=== PATIENT | male | born 1945 | race Caucasian/White ===

== ENCOUNTER 2018-05-18 11:15 | Observation (INO) | payer MEDICARE, OTHER ==
[~2018-05-18] VITALS: Ht 167.6 cm; Wt 68.2 kg
[~2018-05-18 11:15] MED LIST: HALO5TAB16; OMEP20CA16
[2018-05-18] MEDS ORDERED: SOD CHLORIDE 0.9% 1,000 ML IV STA (11:43)
--- NOTE | 2018-05-18 12:14 | ERD ---
ER Documentation Chief Complaint Chief Complaint MECHANICAL FALL WITH LAC TO BACK OF HEAD. BASELINE MENTATION HPI 73-year-old man brought in by family for complaints of losing his balance and then falling backward followed by loss of consciousness. Patient was not walking and did not trip over anything so the cause of his "losing balance" is unknown. Patient does have a history of difficulty ambulating and usually either uses a wheelchair or walker. He said no recent fevers or chills, no vomiting, no complaints of chest pain or shortness of breath. Patient has a lifelong history of cognitive dysfunction and is unable to care for himself. HPI supplemented by speaking to family members who were at the bedside. Patient's tetanus immunization is up-to-date ROS All systems reviewed and are negative except as per history of present illness. Medications Home Meds Reported Medications Omeprazole* (Omeprazole*) 20 Mg Capsule.dr, 20 MG PO DAILY, #30 CAP 05/18/18 Methimazole* (Methimazole*) 5 Mg Tablet, 5 MG PO DAILY, TAB 05/18/18 Amitriptyline Hcl* (Amitriptyline Hcl*) 25 Mg Tablet, 25 MG PO QHS, #30 TAB 05/18/18 Topiramate* (Topiramate*) 50 Mg Tablet, 50 MG PO BID, TAB 05/18/18 Hydrochlorothiazide* (Hydrochlorothiazide*) 25 Mg Tab, 25 MG PO DAILY, #30 TAB 05/18/18 Lisinopril* (Lisinopril*) 10 Mg Tablet, 10 MG PO DAILY, #30 TAB 05/18/18 Discontinued Reported Medications Omeprazole* (Omeprazole*) 20 Mg Capsule. 01/12/10 Haloperidol (Haloperidol) 5 Mg Tablet 01/12/10 Allergies Allergies: Coded Allergies: No Known Allergies (Verified Allergy, Unknown, 05/18/18) PMhx/Soc Hypertension, mental retardation Anesthesia Reaction: No Hx Neurological Disorder: Yes (HX OF MENTAL RETARDATION PER EMS) Hx Respiratory Disorders: No Hx Cardiac Disorders: Yes (htn) Hx Miscellaneous Medical Probl: No Smoking Status: Never smoker FmHx Family History: No diabetes Physical Exam Vitals Vital Signs Date Temp Pulse Resp B/P (MAP) Pulse Ox O2 O2 Flow FiO2 Time Delivery Rate 05/18/18 80 17 118/78 95 Room Air 13:36 (91) 05/18/18 97.6 89 16 117/77 97 11:18 (90) Physical Exam Const: No acute distress, appears calm, afebrile HEENT: Soft tissue contusion and superficial hematoma to the posterior scalp Resp: Clear to auscultation bilaterally Cardio: Regular rate and rhythm, no murmurs Abd: Soft, non tender, non distended. Skin: No petechiae or rashes Back: No midline or flank tenderness Ext: No cyanosis, or edema Neur: Nonverbal, moving all extremities, pupils equal round reactive to light, no focal deficits or facial asymmetry Psych: Normal Mood and Affect Result Diagram: 05/18/18 1330 05/18/18 1330 Results 24 hrs Laboratory Tests Test 05/18/18 13:30 White Blood Count 11.3 10^3/ul Red Blood Count 3.94 10^6/ul Hemoglobin 13.0 g/dl Hematocrit 38.3 % Mean Corpuscular Volume 97.2 fl Mean Corpuscular Hemoglobin 33.0 pg Mean Corpuscular Hemoglobin Concent 33.9 g/dl Red Cell Distribution Width 12.4 % Platelet Count 247 10^3/UL Mean Platelet Volume 9.8 fl Immature Granulocytes % 0.300 % Neutrophils % 86.6 % Lymphocytes % 7.5 % Monocytes % 4.5 % Eosinophils % 0.8 % Basophils % 0.3 % Nucleated Red Blood Cells % 0.0 /100WBC Immature Granulocytes # 0.030 10^3/ul Neutrophils # 9.8 10^3/ul Lymphocytes # 0.9 10^3/ul Monocytes # 0.5 10^3/ul Eosinophils # 0.1 10^3/ul Basophils # 0.0 10^3/ul Nucleated Red Blood Cells # 0.0 10^3/ul Prothrombin Time 13.2 Sec Prothrombin Time Ratio 1.0 INR International Normalized Ratio 0.99 Activated Partial Thromboplast Time 34.9 Sec Sodium Level 136 mmol/L Potassium Level 3.8 mmol/L Chloride Level 101 mmol/L Carbon Dioxide Level 29 mmol/L Anion Gap 6 Blood Urea Nitrogen 30 mg/dl Creatinine 0.95 mg/dl Est Glomerular Filtrat Rate mL/min mL/min Glucose Level 108 mg/dl Calcium Level 10.5 mg/dl Total Bilirubin 0.1 mg/dl Direct Bilirubin 0.00 mg/dl Indirect Bilirubin 0.1 mg/dl Aspartate Amino Transf (AST/SGOT) 28 IU/L Alanine Aminotransferase (ALT/SGPT) 18 IU/L Alkaline Phosphatase 101 IU/L Troponin I < 0.012 ng/ml Total Protein 7.7 g/dl Albumin 4.5 g/dl Globulin 3.20 g/dl Albumin/Globulin Ratio 1.40 Lipase 417 U/L Current Medications Medications Dose Sig/Yemi Start Time Status Last (Trade) Ordered Route PRN Stop Time Admin Dose Reason Admin Sodium 1,000 ml @ Q1H STAT 05/18/18 DC 05/18/18 Chloride 1,000 mls/hr IV 11:43 11:43 05/18/18 12:42 Procedures/MDM IV line was established patient was placed on compliance monitor rhythm strip revealed a sinus tachycardia at 110 bpm with upright P and T waves. Patient was afebrile EKG performed, read by me revealed a sinus tachycardia at 104 bpm, normal axis, first-degree AV block at 208 ms, narrow QRS complex, no concerning ST elevations or depressions noted Chest X-ray 1V Interpreted by me: Soft Tissue: No acute abnormalities Bones: No acute abnormalities Mediastinum/Cardiac Silhouette/Lungs: No acute abnormalities X-ray Pelvis 1V Interpreted by me: Bones: No fracture Joints: No dislocation Foreign body: None CT scan of the brain was performed that was negative for acute bleed mass or shift. I administered 1 L normal saline IV and [place] 1 tablet p.o. CBC was unremarkable, electrolytes revealed dehydration with a BUN/creatinine of 30/1, liver function tests were normal, troponin was negative, urinalysis was negative for infection. Patient will be admitted to telemetry setting for syncope and dehydration. Departure Diagnosis: Primary Impression: Syncope Syncope type: unspecified Qualified Codes: R55 - Syncope and collapse Additional Impressions: Scalp contusion Encounter type: initial encounter Qualified Codes: S00.03XA - Contusion of scalp, initial encounter Dehydration Mental disability Functional quadriplegia Condition: BRITTNI Jose MD May 18, 2018 12:13
[2018-05-18] MEDS ORDERED: LISI10TA2 PO (12:26)
[2018-05-18] MEDS ORDERED: HYDR25TA6 PO (12:26)
[2018-05-18] MEDS ORDERED: TOPI50TA13 PO (12:28)
[2018-05-18] MEDS ORDERED: AMIT25TA9 PO (12:29)
[2018-05-18] MEDS ORDERED: METH-493 PO (12:30)
[2018-05-18] MEDS ORDERED: OMEP20CA16 PO (12:30)
[2018-05-18 14:32] VITALS: PULSE 89
[2018-05-18] MEDS ORDERED: ONDANSETRON 4 MG INJ IV PRN (15:00)
[2018-05-18] MEDS ORDERED: NACL 0.9% 3 ML SYG IV SCH (15:00)
[2018-05-18] MEDS ORDERED: ACETAMINOPHEN 325 MG TAB PO PRN (15:00)
[2018-05-18] MEDS ORDERED: HYDROCODONE/APAP (5/325) TAB PO PRN (15:00)
--- NOTE | 2018-05-18 15:14 | HP ---
Date/Time of Note Date/Time of Note DATE: 05/18/18 TIME: 15:14 Assessment/Plan VTE Prophylaxis Pharmacological prophylaxis: other Lines/Catheters IV Catheter Type (from Nrsg): Saline Lock Assessment/Plan Hospital Course Objective Physical exam General: Patient is laying in bed and answers questions appropriately for his mental state per family, age 3 mental state Mentation: Patient is alert but not oriented chronically Head: Normocephalic atraumatic Eyes: EOMI, pupils reactive to light Neck: Supple, nontender, midline Respiratory: Clear to auscultation bilaterally Cardiovascular: regular rate, no obvious murmurs Gastrointestinal: non-tender to palpation, bowel sounds heard. Neurological: Moves all extremities spontaneously Skin: Small scalp laceration on the back of his head Assessment and plan Mechanical versus syncopal fall -Questionable postconcussive syndrome -Neurology consulted, Dr. Rodriguez -CT head not showing acute bleed, does show superficial hematoma at site of bleed -MRI pending -Echo pending Hypertension -Continue home meds Hyperthyroidism -Continue home meds Cognitive deficiency -Chronic, monitor Elevated lipase -Absolutely no abdominal pain, no further workup necessary Disposition -Monitor overnight, neurology recommendations appreciated, MRI pending. Result Diagram: 05/18/18 1330 05/18/18 1330 Results 24hrs Laboratory Tests Test 05/18/18 13:30 05/18/18 14:08 White Blood Count 11.3 H Red Blood Count 3.94 L Hemoglobin 13.0 L Hematocrit 38.3 L Mean Corpuscular Volume 97.2 Mean Corpuscular Hemoglobin 33.0 Mean Corpuscular Hemoglobin Concent 33.9 Red Cell Distribution Width 12.4 Platelet Count 247 Mean Platelet Volume 9.8 Immature Granulocytes % 0.300 Neutrophils % 86.6 H Lymphocytes % 7.5 L Monocytes % 4.5 Eosinophils % 0.8 Basophils % 0.3 Nucleated Red Blood Cells % 0.0 Immature Granulocytes # 0.030 Neutrophils # 9.8 H Lymphocytes # 0.9 Monocytes # 0.5 Eosinophils # 0.1 Basophils # 0.0 Nucleated Red Blood Cells # 0.0 Prothrombin Time 13.2 Prothrombin Time Ratio 1.0 INR International Normalized Ratio 0.99 Activated Partial Thromboplast Time 34.9 Sodium Level 136 Potassium Level 3.8 Chloride Level 101 Carbon Dioxide Level 29 Anion Gap 6 Blood Urea Nitrogen 30 H Creatinine 0.95 Est Glomerular Filtrat Rate mL/min Glucose Level 108 Calcium Level 10.5 H Total Bilirubin 0.1 L Direct Bilirubin 0.00 Indirect Bilirubin 0.1 Aspartate Amino Transf (AST/SGOT) 28 Alanine Aminotransferase (ALT/SGPT) 18 Alkaline Phosphatase 101 Troponin I < 0.012 Total Protein 7.7 Albumin 4.5 Globulin 3.20 Albumin/Globulin Ratio 1.40 Lipase 417 H Urine Color YELLOW Urine Clarity CLEAR Urine pH 6.0 Urine Specific [place] 1.017 Urine Ketones NEGATIVE Urine Nitrite NEGATIVE Urine Bilirubin NEGATIVE Urine Urobilinogen NEGATIVE Urine Leukocyte Esterase NEGATIVE Urine Hemoglobin NEGATIVE Urine Glucose NEGATIVE Urine Total Protein NEGATIVE HPI/ROS Admit Date/Time Admit Date/Time May 18, 2018 at 13:57 Hx of Present Illness Patient is a male with a past medical history significant for significant cognitive deficiency, mental capacity per family is of a 4 or 3-year-old child. Patient able to speak in short bursts of words but otherwise should be treated as a toddler. Patient supposedly had a mechanical versus syncopal fall while at a doctor's office for his sister. Sister and niece were at the doctor's office and are currently at bedside to help with story as patient cannot explain anything. They state that patient has a history of wobbling in the knees and some gait instability however had no change in mental status recently. Patient always has issues with his lower extremity and gait and always needs assistance. At the doctor's office patient legs gave out and patient fell backwards hitting his skull, his niece immediately rushed over and he was unconscious for approximately 5 minutes while the clinic doctors and medical staff took over and patient spontaneously returned back to his previous mentation state. Patient was taken to the ED and evaluated by ED doc who stated that the laceration on the back of patient's head was too small to staple or suture and he does bleed if he takes off the bandages. Patient currently is comfortable but is tired, and his family is to help cooperate the story. Patient is able to cooperate with some command with help from family and is able to tell pain and states that his head hurts at this time. Patient family cu rrently states that he has a baseline mentation. PMH/Family/Social Past Medical History Medications Current Medications Amitriptyline HCl (Elavil) 25 mg QHS PO ; Start 05/18/18 at 21:00 Hydrochlorothiazide (Hydrochlorothiazide) 25 mg DAILY PO ; Start 05/19/18 at 09:00 Lisinopril (Zestril) 10 mg DAILY PO ; Start 05/19/18 at 09:00 Methimazole (Tapazole) 5 mg DAILY PO ; Start 05/19/18 at 09:00 Topiramate (Topamax) 50 mg BID PO ; Start 05/18/18 at 21:00 Pantoprazole (Protonix Tab) 40 mg DAILY@06 PO ; Start 05/19/18 at 06:00 IV Flush (NS 3 ml) 3 ml PER PROTOCOL IV ; Start 05/18/18 at 15:00 Ondansetron HCl (Zofran Inj) 4 mg Q6H PRN IV NAUSEA AND/OR VOMITING; Start 05/18/18 at 15:00 Acetaminophen (Tylenol Tab) 650 mg Q6H PRN PO PAIN LEVEL 1-3 OR FEVER; Start 05/18/18 at 15:00 Acetaminophen/ Hydrocodone Bitart ([place] (5/325)) 1 tab Q6H PRN PO PAIN LEVEL 4-6; Start 05/18/18 at 15:00 Coded Allergies: No Known Allergies (Verified Allergy, Unknown, 05/18/18) Social History Smoking Status: Never smoker Exam/Review of Systems Vital Signs Vitals Vital Signs Date Temp Pulse Resp B/P (MAP) Pulse Ox O2 O2 Flow FiO2 Time Delivery Rate 05/18/18 89 14:32 05/18/18 17 118/78 95 Room Air 13:36 (91) 05/18/18 97.6 11:18 BRITTNI BARNETT May 18, 2018 15:14
[2018-05-18] MEDS ORDERED: SOD CHLORIDE 0.9% 1,000 ML IV SCH (15:30)
[2018-05-18 16:00] VITALS: PULSE 73
[2018-05-18 16:04] VITALS: Ht 167.6 cm; Wt 68.2 kg
[2018-05-18 16:34] VITALS: BP 118/68; PULSE 69; RESP 16
[2018-05-18 18:00] VITALS: BP 113/70; PULSE 76; RESP 16
--- NOTE | 2018-05-18 18:43 | NUR ---
EOSS: ER admit, s/p fall at outpatient clinic, w/laceration on back of head, w/small bleeding noted on dressing(see wound assessment). VS stable. SR-ST on tele monitor. Pt has hx of mental retardation, however, able to follow simple commands, and able to answer simple questions. Initiated restraints d/t pt was pulling on his IV and dressing on head. Pt's family at bedside and was instructed how to use call light, and fall precautions. Pt's family voiced understanding. All needs attended at this time. Will endorse plan of care to oncoming shift accordingly.
[2018-05-18 20:00] VITALS: BP 108/58; PULSE 73; PULSE 74; RESP 16
[2018-05-18] MEDS: TOPIRAMATE 25 MG TAB PO SCH ×2 (21:00→21:37)
[2018-05-18] MEDS: AMITRIPTYLINE 25 MG TAB PO SCH ×2 (21:00→21:36)
[2018-05-18 22:00] VITALS: BP 128/60; PULSE 76; RESP 16
[2018-05-19] VITALS: BP 133/60; PULSE 81; PULSE 89; RESP 16
[2018-05-19 02:00] VITALS: BP 122/65; PULSE 83; RESP 16
[2018-05-19 04:00] VITALS: BP 106/58; PULSE 85; PULSE 99; RESP 16
[2018-05-19 06:00] VITALS: BP 110/58; PULSE 82; RESP 16
[2018-05-19] MEDS ORDERED: PANTOPRAZOLE (EC) 40 MG TAB PO SCH (06:00)
--- NOTE | 2018-05-19 07:34 | NUR ---
NURSE'S NOTES: Pt resting comfortably with stable VS; maintained on bedrest for generalized weakness. Denies any discomfort. Family at bedside. Pt went to MRI as ordered but was cancelled due to pt agitation. Kept clean and comfortable. Call light in reach. Bed alarm on. Turned and repositioned q2hrs and as needed. All needs anticipated and attended promptly.
[2018-05-19 07:48] VITALS: BP 116/66; PULSE 75; RESP 22
[2018-05-19 08:00] VITALS: PULSE 71
[2018-05-19] MEDS: TOPIRAMATE 25 MG TAB PO SCH (09:00)
[2018-05-19] MEDS ORDERED: HYDROCHLOROTHIAZIDE 25 MG TAB PO SCH (09:00)
[2018-05-19] MEDS ORDERED: METHIMAZOLE 5 MG TAB PO SCH (09:00)
[2018-05-19] MEDS ORDERED: LISINOPRIL 10 MG TAB PO SCH (09:00)
[2018-05-19] MEDS ORDERED: DEXTROSE 5%-0.45% NACL 1,000 ML IV SCH (10:00)
--- NOTE | 2018-05-19 10:39 | NUR ---
Nurses Notes: Pt's sister and niece spoke to Dr. Slaughter, re: signing patient out against medical advice due to patient being NPO, pending ST eval, due to coughing and vomiting with PO intake. Pt's sister and niece stated that patient was at his baseline this morning and that he normally coughs with PO intake. Despite explanation of the risks and consequences of signing out AMA, pt's sister decided to leave. AMA form was signed, tele monitor removed, IV removed w/tip intact. Pt's belongings with family.
[2018-05-19] MEDS ORDERED: POTASSIUM CHLORIDE 100 ML IVPB SCH (11:00)
--- NOTE | 2018-05-19 13:03 | DS ---
Date/Time of Note Date/Time of Note DATE: 05/19/18 TIME: 13:02 Discharge Summary Admission/Discharge Info Admit Date/Time May 18, 2018 at 13:57 Discharge Date/Time May 19, 2018 at 10:44 Patient Condition: Stable Hx of Present Illness Patient is a male with a past medical history significant for significant cognitive deficiency, mental capacity per family is of a 4 or 3-year-old child. Patient able to speak in short bursts of words but otherwise should be treated as a toddler. Patient supposedly had a mechanical versus syncopal fall while at a doctor's office for his sister. Sister and niece were at the doctor's office and are currently at bedside to help with story as patient cannot explain anything. They state that patient has a history of wobbling in the knees and some gait instability however had no change in mental status recently. Patient always has issues with his lower extremity and gait and always needs assistance. At the doctor's office patient legs gave out and patient fell backwards hitting his skull, his niece immediately rushed over and he was unconscious for approximately 5 minutes while the clinic doctors and medical staff took over and patient spontaneously returned back to his previous mentation state. Patient was taken to the ED and evaluated by ED doc who stated that the laceration on the back of patient's head was too small to staple or sut ure and he does bleed if he takes off the bandages. Patient currently is comfortable but is tired, and his family is to help cooperate the story. Patient is able to cooperate with some command with help from family and is able to tell pain and states that his head hurts at this time. Patient family currently states that he has a baseline mentation. Hospital Course Patient's family decided to sign patient out AGAINST MEDICAL ADVICE stating that they can take care of patient patient does not need speech evaluation at this time and they will follow-up with his primary care provider. Information was given to the patient's family including not leaving AGAINST MEDICAL ADVICE could lead to and debility, patient's family accepted all risks and patient will leave AGAINST MEDICAL ADVICE. Home Meds Reported Medications Omeprazole* (Omeprazole*) 20 Mg Capsule., 20 MG PO DAILY, #30 CAP 05/18/18 Methimazole* (Methimazole*) 5 Mg Tablet, 5 MG PO DAILY, TAB 05/18/18 Amitriptyline Hcl* (Amitriptyline Hcl*) 25 Mg Tablet, 25 MG PO QHS, #30 TAB 05/18/18 Topiramate* (Topiramate*) 50 Mg Tablet, 50 MG PO BID, TAB 05/18/18 Hydrochlorothiazide* (Hydrochlorothiazide*) 25 Mg Tab, 25 MG PO DAILY, #30 TAB 05/18/18 Lisinopril* (Lisinopril*) 10 Mg Tablet, 10 MG PO DAILY, #30 TAB 05/18/18 Discontinued Reported Medications Omeprazole* (Omeprazole*) 20 Mg Capsule. 01/12/10 Haloperidol (Haloperidol) 5 Mg Tablet 01/12/10 Primary Care Provider Not On Staff Doctor Time spent on discharge: > 30 minutes Pending Labs Laboratory Tests Test 05/18/18 13:30 05/18/18 14:08 05/18/18 19:17 05/19/18 04:32 White Blood 11.3 11.3 Count 10^3/ul (4.8-10 10^3/ul (4.8-1 .8) 0.8) Red Blood 3.94 3.69 Count 10^6/ul (4.70-6 10^6/ul (4.70- .10) 6.10) Hemoglobin 13.0 13.0 12.4 g/dl (14.0-18.0 g/dl (14.0-18. g/dl (14.0-18. ) 0) 0) Hematocrit 38.3 38.4 35.6 % (42.0-52.0) % (42.0-52.0) % (42.0-52.0) Mean 97.2 96.5 Corpuscular fl (82.0-101.0) fl (82.0-101.0 Volume ) Mean 33.0 33.6 Corpuscular pg (29.0-33.0) pg (29.0-33.0) Hemoglobin Mean 33.9 34.8 Corpuscular g/dl (32.0-37.0 g/dl (32.0-37. Hemoglobin Conc ) 0) ent Red Cell 12.4 12.2 Distribution % (11.5-14.5) % (11.5-14.5) Width Platelet Count 247 235 10^3/UL (140-41 10^3/UL (140-4 5) 15) Mean Platelet 9.8 9.9 Volume fl (7.4-10.4) fl (7.4-10.4) Immature 0.300 0.400 Granulocytes % % (0.001-0.429) % (0.001-0.429 ) Neutrophils % 86.6 86.2 % (39.0-77.0) % (39.0-77.0) Lymphocytes % 7.5 5.5 % (15.0-51.0) % (15.0-51.0) Monocytes % 4.5 7.8 % (0.0-11.0) % (0.0-11.0) Eosinophils % 0.8 % (0.0-7.0) 0.0 % (0.0-7.0) Basophils % 0.3 % (0.0-2.0) 0.1 % (0.0-2.0) Nucleated Red 0.0 0.0 Blood Cells % /100WBC (0.0-0. /100WBC (0.0-0 0) .0) Immature 0.030 0.050 Granulocytes # 10^3/ul (0.0-0. 10^3/ul (0.0-0 031) .031) Neutrophils # 9.8 9.8 10^3/ul (1.6-7. 10^3/ul (1.6-7 5) .5) Lymphocytes # 0.9 0.6 10^3/ul (0.8-2. 10^3/ul (0.8-2 9) .9) Monocytes # 0.5 0.9 10^3/ul (0.3-0. 10^3/ul (0.3-0 9) .9) Eosinophils # 0.1 0.0 10^3/ul (0.0-0. 10^3/ul (0.0-0 5) .5) Basophils # 0.0 0.0 10^3/ul (0.0-0. 10^3/ul (0.0-0 1) .1) Nucleated Red 0.0 0.0 Blood Cells # 10^3/ul (0.0-0. 10^3/ul (0.0-0 0) .0) Prothrombin 13.2 Time Sec (11.9-14.9) Prothrombin 1.0 Time Ratio INR 0.99 International Normalized Rati o Activated 34.9 Partial Thrombo Sec (23.0-35.0) plast Time Sodium Level 136 137 mmol/L (135-144 mmol/L (135-14 ) 4) Potassium 3.8 3.4 Level mmol/L (3.5-5.1 mmol/L (3.5-5. ) 1) Chloride Level 101 102 mmol/L (97-110) mmol/L (97-110 ) Carbon Dioxide 29 24 Level mmol/L (21-31) mmol/L (21-31) Anion Gap 6 (5-13) 11 (5-13) Blood Urea 30 mg/dl (7-20) 26 Nitrogen mg/dl (7-20) Creatinine 0.95 0.81 mg/dl (0.61-1.2 mg/dl (0.61-1. 4) 24) Est Glomerular mL/min (>60) mL/min (>60) Filtrat Rate mL/min Glucose Level 108 123 mg/dl (70-220) mg/dl (70-220) Calcium Level 10.5 10.2 mg/dl (8.4-10.2 mg/dl (8.4-10. ) 2) Total 0.1 0.4 Bilirubin mg/dl (0.2-1.3) mg/dl (0.2-1.3 ) Direct 0.00 0.00 Bilirubin mg/dl (0.00-0.2 mg/dl (0.00-0. 0) 20) Indirect 0.1 0.4 Bilirubin mg/dl (0-1.1) mg/dl (0-1.1) Aspartate Amino 28 IU/L (15-46) 28 Transf (AST/SGO IU/L (15-46) T) Alanine 18 IU/L (13-69) 25 Aminotransferas IU/L (13-69) e (ALT/SGPT) Alkaline 101 75 Phosphatase IU/L (42-121) IU/L (42-121) Troponin I < 0.012 ng/ml (0.000-0. 120) Total Protein 7.7 6.9 g/dl (6.1-8.1) g/dl (6.1-8.1) Albumin 4.5 4.2 g/dl (3.3-4.9) g/dl (3.3-4.9) Globulin 3.20 2.70 g/dl (1.3-3.2) g/dl (1.3-3.2) Albumin/Globuli 1.40 1.55 n Ratio Lipase 417 U/L (23-300) Urine Color YELLOW (YELLOW ) Urine Clarity CLEAR (CLEAR) Urine pH 6.0 (5.0-9.0) Urine Specific 1.017 (1.003-1 [place] .030) Urine Ketones NEGATIVE mg/dL (NEGATIV E) Urine Nitrite NEGATIVE mg/dL (NEGATIV E) Urine NEGATIVE Bilirubin mg/dL (NEGATIV E) Urine NEGATIVE Urobilinogen mg/dL (NEGATIV E) Urine Leukocyte NEGATIVE Mauro/u Esterase l Urine NEGATIVE Hemoglobin mg/dL (NEGATIV E) Urine Glucose NEGATIVE mg/dL (NEGATIV E) Urine Total NEGATIVE Protein mg/dl (NEGATIV E) Hemoglobin A1c 5.1 % (0-5.9) Magnesium 1.9 Level mg/dl (1.7-2.5 ) Triglycerides 95 Level mg/dl (0-149) Cholesterol 178 Level mg/dl (100-200 ) LDL 102 mg/dl Cholesterol, Calculated HDL 57 Cholesterol mg/dl (31-75) Cholesterol/HDL 3.1 RATIO Ratio Thyroid 0.684 Stimulating MIU/L (0.465-4 Hormone (TSH) .680) BRITTNI BARNETT May 19, 2018 13:03
--- NOTE | 2018-05-19 13:34 | RADRPT ---
Echocardiogram Report Patient Name: VICKI MAYORGA Gender: Male Date: 1945 Study Date: 19-May-2018 Sql Bi Developer: Dafne Horowitz [facility] Location: [id number] Ref. Physician: BRITTNI BARNETT Quality: Adequate Procedures: Transthoracic echocardiogram with complete 2D, M-Mode, and doppler examination. Indications: Syncope. 2D/M Mode Doppler Measurement Value Normal Ranges Measurement Value Normal Ranges LVIDd 2D 2.9 3.5 - 5.6 cm AV Peak Kp 1.5 m/sec LVIDs 2D 1.9 2.1 - 4.1 cm AV Peak PG 9.0 mmHg FS 2D 36.7 % LVOT Peak Kp 1.5 m/sec LVPWd 2D 1.0 0.6 - 1.1 cm LVOT Peak PG 8.0 mmHg IVSd 2D 0.9 0.6 - 1.1 cm MV E Peak Kp 0.8 m/sec IVS/LVPW 2D 0.9 MV A Peak Kp 0.9 m/sec AoR Diam 2D 2.0 2.0 - 3.7 cm MV E/A 0.9 LA/Ao 2D 1 0 - 1 MV Decel Time 229 msec EDV 2D 25.4 cm3 MV E/A 0.9 ESV 2D 6.4 cm3 LA Dimen 2D 2.7 2.3 - 4.0 cm Findings Left Ventricle: Normal left ventricular systolic function. Normal left ventricular cavity size. Normal left ventricular wall thickness. Ejection fraction is visually estimated at 60 %. Tissue Doppler/Mitral Doppler indices are consistent with impaired relaxation (Stage I diastolic dysfunction). Right Ventricle: Normal right ventricular size. Normal right ventricular systolic function. Left Atrium: The left atrium is normal in size. Right Atrium: The right atrium is normal in size. Mitral Valve: Normal appearance and function of the mitral valve with trace physiologic regurgitation. Aortic Valve: Normal appearance of the aortic valve. No significant aortic stenosis or insufficiency. Tricuspid Valve: Normal appearance and function of the tricuspid valve with trace physiologic regurgitation. Pericardium: Normal pericardium with no significant pericardial effusion. Aorta: Normal aortic root. IVC: The IVC is not well visualized. Conclusions Normal left ventricular systolic function. Normal left ventricular cavity size. Normal left ventricular wall thickness. Ejection fraction is visually estimated at 60 %. Tissue Doppler/Mitral Doppler indices are consistent with impaired relaxation (Stage I diastolic dysfunction). Normal right ventricular size. Normal right ventricular systolic function. The left atrium is normal in size. The right atrium is normal in size. No significant valvular stenosis or regurgitation seen. Normal pericardium with no significant pericardial effusion. Electronically Signed By: Rangel Larios 19-May-2018 13:33:51 -0800 Patient Name: VICKI MAYORGA Study Date: 19-May-2018 [id number]
== END 2018-05-19 10:44 | disposition left against medical advice (07) ==
LOC: E/R 11:15 → 6WM 13:57 → INTOOBSV 13:57
PROVIDERS: ADMIT Internal Medicine; ATTEND Internal Medicine
DX: R55 Syncope and collapse (principal); S01.01XA Laceration without foreign body of scalp, initial encounter; I10 Essential (primary) hypertension; F79 Unspecified intellectual disabilities; E05.90 Thyrotoxicosis, unspecified without thyrotoxic crisis or storm; R74.8 Abnormal levels of other serum enzymes; X58.XXXA Exposure to other specified factors, initial encounter
CPT/HCPCS: 70450; 71045; 72170; 80053; 80061; 81003; 83036; 83690; 83735; 84443; 84484; 85014; 85018; 85025; 85610; 85730; 93306; G0378; J7030; J7042; 36415; 93005; J3480